=== PATIENT | male | born 1995 | race African-American/Black ===

== ENCOUNTER → 2016-10-06 | Outpatient (CLI) | payer MEDICAID | LOC: OD 13:15 | PROVIDERS: ATTEND Nurse Practitioner Acute Care | DX: R07.81 Pleurodynia (principal); S49.92XA Unspecified injury of left shoulder and upper arm, initial encounter; X58.XXXA Exposure to other specified factors, initial encounter ==

== ENCOUNTER 2017-07-12 19:51 | Emergency (ER) | payer MEDICAID ==
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
[2017-07-13] MEDS ORDERED: DIPH/PERTUSS(ACELL)/TETANUS VAC/PF 0.5 ML SYR (>=10YO) IM ONE (02:48)
[2017-07-13] MEDS ORDERED: LIDOCAINE 4%/TETRACAINE 0.5%/EPI 0.18% 5 ML TOPICAL SOLN TOP ONE (02:51)
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
[2017-07-13] MEDS ORDERED: ACETAMINOPHEN 325 MG TABLET PO ONE (04:08)
[2017-07-13 04:24] VITALS: BP 108/75
== END 2017-07-13 04:24 | disposition home or self-care (01) ==
LOC: ER 19:51
PROC: 09CK0ZZ Extirpation of Matter from Nasal Mucosa and Soft Tissue, Open Approach (ICD-10-PCS; principal; 2017-07-12)
DX: T17.1XXA Foreign body in nostril, initial encounter (principal); W34.010A Accidental discharge of airgun, initial encounter; F17.210 Nicotine dependence, cigarettes, uncomplicated
CPT/HCPCS: 99283; 90471; 70160; 90715; 30320; J3490 ×2